=== PATIENT | male | born 1995 | race Caucasian/White ===

== ENCOUNTER 2019-09-01 16:39 | Inpatient (IN) ==
[2019-09-01 17:28] LABS: Appearance Urine Clear (Clear); Bilirubin Urine Negative (Negative); Blood Urine Negative (Negative); Color Urine Yellow; Glucose Urine UA Negative (Negative); Ketones Urine Negative (Negative); Leukocyte Esterase Urine Negative (Negative); Nitrite Urine Negative (Negative); Protein Urine Negative (Negative); Urobilinogen Urine Negative (Negative); pH Urine 7.5 (4.5-7.5)
[2019-09-01 17:32] LABS: Basophils # (auto) 0.02 K/uL (0-0.2); Basophils % (auto) 0.2 %; Eosinophils % (auto) 1.2 %; Hematocrit (blood only) 47.7 % (42-52); Hemoglobin 16.8 g/dL (14.0-18.0); Immature Granulocytes # (auto) 0.02 K/uL (0.00-0.02); Immature Granulocytes % (auto) 0.2 %; Lymphocytes # (auto) 2.63 K/uL (1.2-3.4); Lymphocytes % (auto) 31.9 %; Mean Corpuscular Hemoglobin 31.2 pg (25-34); Mean Corpuscular Hgb Conc 35.2 g/dL (32-36); Mean Corpuscular Volume 88.7 fL (80-100); Mean Platelet Volume 10.3 fL (7.4-10.4); Monocytes % (auto) 6.1 %; Neutrophils # (auto) 4.97 K/uL (1.4-6.5); Neutrophils % (auto) 60.4 %; Platelet Count 239 K/uL (130-400); RDW Coefficient of Variation 12.3 % (11.5-14.5); RDW Standard Deviation 39.3 fL (36.4-46.3); Red Blood Count 5.38 M/uL (4.7-6.1); White Blood Count 8.24 K/uL (4.8-10.8)
[2019-09-01 17:48] LABS: Albumin Level 4.5 gm/dl (3.4-5.0); BUN Creatinine Ratio 12.8 (10-20); Calcium 9.2 mg/dl (8.5-10.1); Creatinine Clr Calc Pharmacy 147.5 ml/min; Est GFR (African American) 132.6; Est GFR (Non-African American) 114.4; Potassium 3.7 mmol/L (3.5-5.1)
[2019-09-01 17:48] LABS: Amphetamines+Metham, Urine Neg (Neg); Barbiturates, Urine Neg (Neg); Benzodiazepine, Urine Neg (Neg); Cocaine, Urine Neg (Neg); MDMA (Ecstacy), Urine Neg (Neg); Methadone, Urine Neg (Neg); Opiate, Urine Neg (Neg); Phencyclidine, Urine Neg (Neg)
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
[2019-09-01 17:59] LABS: Albumin Globulin Ratio 1.5 (0.9-2); Bilirubin,Total 0.6 mg/dl (0.2-1); Globulin 3.1 gm/dl (2.5-4.0); Thyroid Stimulating Hormone 5.8 uIu/ml (0.300-4.500); Total Protein 7.6 gm/dl (6.4-8.2)
[2019-09-01 18:12] LABS: T4 Free Thyroxine 0.97 ng/dl (0.8-1.6)
[2019-09-01 18:15] LABS: Acetaminophen < 2 ug/ml (10-30)
[2019-09-01 18:16] LABS: Salicylate < 1.7 mg/dl (2.8-20)
[2019-09-01] MEDS ORDERED: BISMUTH SUBSALICYLATE PER ML OMNICELL CHARGE PO PRN (19:18)
[2019-09-01] MEDS ORDERED: MAGNESIUM HYDROXIDE SUSP 30 ML UDC PO PRN (19:18)
[2019-09-01] MEDS ORDERED: SODIUM CHLORIDE 0.65% NA SOLN 45 ML (OCEAN) PRN (19:18)
[2019-09-01] MEDS ORDERED: ALUMINUM/MAGNESIUM SUSP 30 ML UDC PO PRN (19:18)
[2019-09-01] MEDS ORDERED: ACETAMINOPHEN 325 MG TAB PO PRN (19:18)
[2019-09-02] MEDS ORDERED: BuPROPion SR 100 MG TABCR PO STA (16:09)
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
[2019-09-02] MEDS: NICOTINE POLACRILEX 2 MG GUM MT PRN (17:33)
[2019-09-03] MEDS: BuPROPion XL 150 MG TABCR PO SCH (08:54)
--- NOTE | 2019-09-03 08:56 | Psychiatric Progress Note ---
Date of Service September 03, 2019 Impression / Recommendations Impression 24-year-old male admitted voluntarily for inpatient psychiatric treatment on 09/01/2019 after presenting to the ED with depressive symptoms and SI with plan to wreck his car. Pt is being treated for a diagnosis of major depressive disorder and history of opiate use disorder and ADHD. Attempting to rule out a component of substance-induced mood symptoms, as patient is regularly utilizing cannabis. As patient had found previous trials of sertraline (with buspirone) and fluoxetine ineffective, plan to start bupropion was initiated. Titrating the medication as tolerated, while also observing level of anxiety. Pt is agreeable with referrals for outpatient therapy and psychiatry. He also agreed with a referral to the [facility] for case management. Although patient is denying SI presently, risk of self-harm on discharge remains high as patient has had limited ability at this point in his stay in engage in group programming and he still requires outpatient appointments. He did participate in a family meeting with his mother, who remains supportive. Inpatient psychiatric treatment remains medically necessary at this time. (1) Depression: 09/02 - 201 admission on 3S q15 minute safety checks for SI family meeting with mother occurred today with SW and went well and parents supportive and pt and parents adjusting with how to provide/obtain support individual and group psychotherapy while inpt milieu therapy after review of presentation and treatment options including r/b/a - added wellbutrin, given time of day for today's dose 09/02 dose to be wellbutrin sr 100mg 1 now converting to wellbutrin xl 150mg am daily starting 09/03/2019 aftercare outpt individual psychotherapy referral and referral for psychiatric med management as well validated sobriety from opiate related meds, encouraged sobriety from cannabis and rationale explored motivation for quitting snuff, pt is ambivalent and wellbutrin being rx'd which can be helpful, nicotine gum ordered and can add patch if needed Vistaril prn anxiety/insomnia explore for ADHD, wellbutrin can alleivate adhd smyptoms off label and address related symptoms tied to depression 09/03 - Continue Wellbutrin XL 150mg daily - recommending observation of anxiety level, as patient questioning if it has been somewhat exacerbated since beginning this new medication. Reviewed various treatment options to target this increase in anxiety, including switching medications, additional of buspirone, or utilization of hydroxyzine as needed - Pt will require solidified aftercare appointments - as he has no professional psychiatric resources in the area presently - Referral to the [facility] for case management - Family meeting with mother occurred yesterday Inventory Assets Strengths: seeking help, wanting psychiatric medicaiton to use to treat depressive smyptoms in proper way, aintaning sobreity from opiate related meds Needs: support from family, outpatient after, psychiatric medications Risk Factors Assessment Male: Yes : Yes Do You Have Access To A Gun?: No (parents have guns but locked up with pt not having access) Health Problems: No Mental Health Diagnoses: Yes Substance Use Disorders: Yes Previous Attempt: No Family History of Suicide: No Previous Psychiatric Hospitalization: No Protective Factors Assessment : No Responsible for Young Children: No Employed: No Supportive Family: Yes Interval History Identifying Information JAUN RIVERS is a 24-year-old M who currently lives with older sister and par ents in [place], [place] and was admitted on 09/01/19 19:18 on a 201 voluntary commitment for worsening depressive symptoms and SI. Chief Complaint "Yeah, so I've been depressed for a few years. I stopped Suboxone last August, and I really think that was covering how bad I was truly feeling." Review of Systems Notes Constitutional: denied Cardiovascular: denied Respiratory: denied Gastrointestinal: denied Neurological: denied Psychiatric: denies symptoms other than stated above Total of at least 10 systems reviewed, pertinent positives as above and in HPI. Sleep Information Total Hours of Sleep: 7 Meal Information Percent Meal Consumed - Lunch: 70 Percent Meal Consumed - Dinner: 100 Subjective Subjective Patient was seen & assessed and interval progress reviewed with treatment team. Staff report the patient has been pleasant and appropriate in interactions with peers. There is concern related to patient's bright affect, and his admission that he often presents a facade that does not accurately reflect his level of depression. Pt did participate in a family meeting with his mother, who remains supportive. Pt was seen today to assess progress since admission. He states that things are going well thus far, and he is noticing some mild improvement in his mood. Pt does report concern related to perceived increase in anxiety since initiating bupropion yesterday. We discussed that this is a potential reaction with this medication, and to continue observation at current dose before discussing further titration. Reviewed various medication options should anxiety continue. Pt denies SI at this time, but remains hopeful for outpatient appointments prior to discharge. Pt denies other needs or concerns at this time. Physical Exam Psychiatric Orientation: alert, oriented x 3 and cooperative (and pleasant) Apperance: appropriately dressed, appropriately groomed and appeared stated age Eye Contact: good eye contact Motor Behavior: steady gait and station and no abnormal motor movements Speech: normal rate/rhythm/volume of speech Affect: euthymic affect; + mood not congruent with affect reporting mood is still rather depressed, and more anxious - presents as bright and interactive Mood: + depressed mood and + anxious mood (reporting increased anxiety as of last evening) Thought Process: goal directed thought process, linear/logical thought process a nd thought association intact Thought Content: reality based without delusions; no hopelessness Suicidal Thoughts: denies suicidal thoughts and denies suicidal intent Homicidal Thoughts: denies homicidal thoughts Hallucinations: no auditory hallucinations and no visual hallucinations Cognition: attention grossly intact and language grossly intact Estimated Intelligence: consistent with education level Insight: + fair insight Judgement: + fair judgement Vital Signs (Past 24 Hours) Last Vital Signs Temp 36.3 C L 09/03/19 06:47 Pulse 65 09/03/19 06:47 Resp 18 09/03/19 06:47 BP 122/76 09/03/19 06:47 Pulse Ox 97 09/01/19 20:00 Results & Data ([facility]) Current Inpatient Medications Current Inpatient Medications: Current Inpatient Medications Acetaminophen (Tylenol) 650 mg PO Q4H PRN PRN Reason: Headache or Minor Fever Stop: 10/01/19 19:17 Al Hydrox/Mg Hydrox/Simethicone (Maalox) 30 ml PO Q4H PRN PRN Reason: GI Upset Stop: 10/01/19 19:17 Bismuth Subsalicylate (Kaopectate) 15 ml PO PRN PRN PRN Reason: Loose Stool Stop: 10/01/19 19:17 Bupropion HCl (Wellbutrin-Xl) 150 mg PO QAM KARINA Stop: 10/03/19 08:59 Last Admin: 09/03/19 08:54 Dose: 150 mg Documented by: Hydroxyzine HCl (Vistaril) 50 mg PO HSZ PRN PRN Reason: Insomnia Stop: 10/01/19 19:17 Last Admin: 09/02/19 21:38 Dose: 50 mg Documented by: Hydroxyzine HCl (Vistaril) 25 mg PO Q4H PRN PRN Reason: Anxiety Stop: 10/01/19 19:17 Magnesium Hydroxide (Milk Of Magnesia) 30 ml PO DAILY PRN PRN Reason: Constipation Stop: 10/01/19 19:17 Nicotine Polacrilex (Nicorette 2mg) 2 piece MT PRN PRN PRN Reason: nicotinue cravings Stop: 10/02/19 17:08 Last Admin: 09/02/19 17:33 Dose: 1 piece Documented by: Sodium Chloride ([place] Nasal) 1 - 2 sprays NA PRN PRN PRN Reason: Nasal Dryness/Congestion Stop: 10/01/19 19:17 Post Discharge Appointments Primary Care Physician Name Of Family Doctor: Mar Fajardo (1) Depression Active/Remission status: currently active Depression Type: major depressive disorder Major depression episode severity: unspecified Major depression recurrence: recurrent Qualified Code(s): F33.9 - Major depressive disorder, recurrent, unspecified
[2019-09-03] MEDS: NICOTINE POLACRILEX 2 MG GUM MT PRN ×2 (08:58→17:55)
[2019-09-04] MEDS: BuPROPion XL 150 MG TABCR PO SCH (08:03)
--- NOTE | 2019-09-04 09:19 | Discharge Summary ---
Date of Service September 04, 2019 History of Present Illness 24 yr old single male living with parents and grown sister (parents on extended trips much of the time though). h/o OUD - including misuse of suboxone, ceased suboxone just over a year ago, uses cannabis daily, uses snuff, been depressed which has worsened past few months but worsened further past 2-3 weeks with SI developing recently and started to have thoughts of crashing his car as way to end his life, lead to ER visit with parents with seeking admission and establishing treatment. He is open to antidepressant medication and outpatient therapy appts. denied h/o hypomanic symptoms fatigue, middle insomnia with waking up 2-3 times a night, depressed mood, impaired concentration, lack of motivation, sometimes over eats. denied h/o restrictive eating or self induced vomiting or binge eating. past couple weeks not been grooming self. feels parents are supportive. does not like his job which is boring and beneath him. left prior job a year ago when ceased suboxone usage. a residential relationship ended fall 2017 that had lasted 3 years. pt wanting to make changes in his life. anxiety symptoms flaring up lately, no panic attacks per pt but can feel anxious and self conscious, worsened past few weeks. alcohol about once am o nth, was nnever more then couple times a month for alcohol in past. dx adhd as child per pt does tend to be impuslive and .longstanding h/o attention concentration issues per pt. Physical Exam Psychiatric Orientation: alert and cooperative Apperance: appropriately dressed, appropriately groomed and appeared stated age Eye Contact: good eye contact Motor Behavior: steady gait and station and no abnormal motor movements Speech: normal rate/rhythm/volume of speech Affect: euthymic affect and mood congruent with affect Mood: no depressed mood and no anxious mood "great!" Thought Process: goal directed thought process and linear/logical thought process Thought Content: reality based without delusions Suicidal Thoughts: denies suicidal thoughts Homicidal Thoughts: denies homicidal thoughts Hallucinations: no auditory hallucinations and no visual hallucinations Cognition: recent memory grossly intact, attention grossly intact and language grossly intact Estimated Intelligence: consistent with education level Insight: good insight Judgement: good judgement Vital Signs (Past 24 Hours) Last Vital Signs Temp 36.3 C L 09/04/19 06:38 Pulse 85 02/18/20 06:39 Resp 18 09/04/19 06:38 BP 122/85 09/04/19 06:39 Pulse Ox 97 09/01/19 20:00 Principal Diagnosis Major depressive disorder, recurrent, severe without psychosis Cannabis use disorder Opiate use disorder, in full sustained remission Psychiatric Data Patient was hospitalized for 3 days. On admission, he was started on bupropion XL. There was initially some concern for increased anxiety/impaired sleep, but over the next couple of days both anxiety and sleep improved, and he appear to be tolerating the medication well. He utilized hydroxyzine for sleep, and reported it was helpful. He attended and participated in groups and therapy, and socialized with peers in his free time. He consistently denied suicidal thoughts throughout his hospital stay. He processed his stressors, including his chronic low self-esteem, and his tendency to project his belief that he is an underachiever and disappointment on to his parents. He was able to identify and challenge distorted thinking patterns. His mother returned from a trip to [place] when she learned that he was in the hospital, and he reported feeling supported by his parents. He had a family meeting with the social media coordinator and his mother on 09/02/2019, during which they reviewed symptoms of depression as well as treatment recommendations, including therapy, medication, and increased supports. He was able to work on a safety plan, which was shared with his mother during the meeting. His mother confirmed that the guns at home are locked and the patient does not have access to them. He also discussed work stress, as he quit his job recently, and was open to working with O regarding employment options. Talked about his uncertainty about what he wants to do with his life. They also discussed his addiction issues, stating that he was sober from opiates for 1 year on 08/27/2018. He agreed to referrals for outpatient services, including medication management, therapy, and case management. Day of Discharge Assessment Staff report the patient is attending and participating in groups and therapy, completed his discharge safety plan, is tending to ADLs independently, interacting appropriately with staff and peers, and consistently denying suicidal thoughts. He is reporting improved mood, and requesting discharge. On my assessment, he states that mood, anxiety, and sleep have all improved over the past 2 days, and he denies side effects to medications. He is feeling hopeful about the future, and denies any thoughts to harm himself or others. He is able to review his discharge safety plan, and states he is looking forward to leaving the hospital and returning to his life. He says he is surprised at how helpful treatment has been, as he did not think he would like attending group therapy, but has found it beneficial. He states willingness to follow-up with outpatient treatment, and denies any acute safety concerns. Transition of Care Transition Of Care Record: was reviewed with the patient Advance Directives Advance Directives Information Provided: Yes Advance Directives: No Mental Health Advance Directive: No Living Will: No Power of Ehr Trainer: No Advance Directives Reason:: Declines as Mental Health Visit. Risk Factors Assessment Risk factors were mitigated by admission to the inpatient unit, use of medications to target mood symptoms and insomnia, education about his diagnoses and the recommended treatment, education about substance abuse and recommendations for abstinence, family meeting with the social media coordinator and his mother, involving him in groups and therapy, working on healthy coping skills and a discharge safety plan, confirming with family that guns are secured and he does not have access, and referring him for outpatient treatment. He is reporting improved mood, has consistently denied suicidal thoughts, is performing ADLs independently, and stating willingness to follow-up with outpatient treatment. He is requesting discharge, and as he is no longer at acute risk of harm to himself or others, can be managed as an outpatient at this time. Male: Yes : Yes Do You Have Access To A Gun?: No (parents have guns but locked up with pt not having access) Health Problems: No Mental Health Diagnoses: Yes Substance Use Disorders: Yes Previous Attempt: No Family History of Suicide: No Previous Psychiatric Hospitalization: No Hopelessness: No Protective Factors Assessment : No Responsible for Young Children: No Employed: No Supportive Family: Yes Tobacco Cessation at Discharge Tobacco Cessation Medication Prescribed at Discharge: Not Applicable/Non-Smoker Total Time Total Time Spent: Less Than 30 Minutes Discharge Data Consultations 09/01/19 19:56 ED Decision to Admit Stat Lab Results 09/01/19 09/01/19 09/01/19 17:20 17:20 17:21 WBC 8.24 RBC 5.38 Hgb 16.8 Hct 47.7 MCV 88.7 MCH 31.2 MCHC 35.2 RDW Std Deviation 39.3 RDW Coeff of Narendra 12.3 Plt Count 239 MPV 10.3 Immature Gran % (Auto) 0.2 Neut % (Auto) 60.4 Lymph % (Auto) 31.9 [place] % (Auto) 6.1 Eos % (Auto) 1.2 Baso % (Auto) 0.2 Immature Gran # (Auto) 0.02 Neut # (Auto) 4.97 Lymph # (Auto) 2.63 [place] # (Auto) 0.50 Eos # (Auto) 0.10 Baso # (Auto) 0.02 Sodium Potassium Chloride Carbon Dioxide Anion Gap BUN Creatinine Est Cr Clr Drug Dosing Est GFR ( Amer) Est GFR (Non-Af Amer) BUN/Creatinine Ratio Glucose Calcium Total Bilirubin AST ALT Alkaline Phosphatase Total Protein Albumin Globulin Albumin/Globulin Ratio TSH Free T4 Urine Color Yellow Urine Appearance Clear Urine pH 7.5 Ur Specific [place] 1.020 Urine Protein Negative Urine Glucose (UA) Negative Urine Ketones Negative Urine Blood Negative Urine Nitrite Negative Urine Bilirubin Negative Urine Urobilinogen Negative Ur Leukocyte Esterase Negative Salicylates Urine Opiates Screen Neg Ur Methadone, Qual Neg Acetaminophen Urine Barbiturates Neg Ur Phencyclidine (PCP) Neg U Amphetamin/Meth Scrn Neg MDMA (Ecstasy) Screen Neg U Benzodiazepines Scrn Neg Ur Cocaine Metabolite Neg U Marijuana (THC) Screen Pos H Ethyl Alcohol mg/dL 09/01/19 09/01/19 09/01/19 17:21 17:21 17:21 WBC RBC Hgb Hct MCV MCH MCHC RDW Std Deviation RDW Coeff of Narendra Plt Count MPV Immature Gran % (Auto) Neut % (Auto) Lymph % (Auto) [place] % (Auto) Eos % (Auto) Baso % (Auto) Immature Gran # (Auto) Neut # (Auto) Lymph # (Auto) [place] # (Auto) Eos # (Auto) Baso # (Auto) Sodium 138 Potassium 3.7 Chloride 106 Carbon Dioxide 26 Anion Gap 6.0 BUN 12 Creatinine 0.92 Est Cr Clr Drug Dosing 147.5 Est GFR ( Amer) 132.6 Est GFR (Non-Af Amer) 114.4 BUN/Creatinine Ratio 12.8 Glucose 100 H Calcium 9.2 Total Bilirubin 0.6 AST 15 ALT 37 Alkaline Phosphatase 77 Total Protein 7.6 Albumin 4.5 Globulin 3.1 Albumin/Globulin Ratio 1.5 TSH 5.800 H Free T4 0.97 Urine Color Urine Appearance Urine pH Ur Specific [place] Urine Protein Urine Glucose (UA) Urine Ketones Urine Blood Urine Nitrite Urine Bilirubin Urine Urobilinogen Ur Leukocyte Esterase Salicylates < 1.7 L Urine Opiates Screen Ur Methadone, Qual Acetaminophen < 2 L Urine Barbiturates Ur Phencyclidine (PCP) U Amphetamin/Meth Scrn MDMA (Ecstasy) Screen U Benzodiazepines Scrn Ur Cocaine Metabolite U Marijuana (THC) Screen Ethyl Alcohol mg/dL < 3.0 Hospital Course (1) Depression: 09/02 - 201 admission on 3S q15 minute safety checks for SI family meeting with mother occurred today with SW and went well and parents supportive and pt and parents adjusting with how to provide/obtain support individual and group psychotherapy while inpt milieu therapy after review of presentation and treatment options including r/b/a - added Wellbutrin, given time of day for today's dose 09/02 dose to be Wellbutrin sr 100mg 1 now converting to Wellbutrin XL 150mg am daily starting 09/03/2019 aftercare outpt individual psychotherapy referral and referral for psychiatric med management as well validated sobriety from opiate related meds, encouraged sobriety from cannabis and rationale explored motivation for quitting snuff, pt is ambivalent and Wellbutrin being rx'd which can be helpful, nicotine gum ordered and can add patch if needed Vistaril prn anxiety/insomnia explore for ADHD, Wellbutrin can alleviate adhd symptoms off label and address related symptoms tied to depression 09/03 - Continue Wellbutrin XL 150mg daily - recommending observation of anxiety level, as patient questioning if it has been somewhat exacerbated since beginning this new medication. Reviewed various treatment options to target this increase in anxiety, including switching medications, additional of buspirone, or utilization of hydroxyzine as needed - Pt will require solidified aftercare appointments - as he has no professional psychiatric resources in the area presently - Referral to the [facility] for case management - Family meeting with mother occurred yesterday 09/04 -Patient reports he is tolerating bupropion XL well, slept well last night, and anxiety has improved over the past 2 days. 30-day prescription issued; initial evaluation scheduled at [facility] 09/25/2019 4 medication management. -Referred to Nandini Copeland for individual therapy, initial assessment 09/05/2019. -Referred to [facility] for BCM; phone intake today prior to discharge. (2) Cannabis abuse: Psychoeducation provided regarding the risks of THC, and recommendations for abstinence. Referred for outpatient therapy, medication management, and BCM as above. (3) Opiate abuse, continuous: Last use 08/2018; currently in remission. Recommend avoidance of controlled substances due to the high risk for abuse/misuse/negative outcomes. Mental Health & Subst Abuse Tx Psychiatrist Name of Psychiatrist: Sophia Parish PA-C Psychiatrist's Date of Appointment with Psychiatrist: 09/25/19 Time of Appointment with Psychiatrist: 1pm Psychiatric Appointment Comment: [id number] [facility] [id number] Therapist Name of Therapist: Nandini Balbuena [facility] Therapist's Date of Therapist Appointment: 09/05/19 Time of Therapist Appointment: 2 pm Therapy Appointment Comment: [id number], [place] [address] Enrollment Management Vice President Name of Enrollment Management Vice President: [facility] Phone Number for Enrollment Management Vice President: [phone] Post Discharge Appointments Primary Care Physician Name Of Family Doctor: Mar Brito Primary Care Provider Appointment Comment: [address] [place] [address] Smoking Cessation Counseling Tobacco Cessation Medication Prescribed at Discharge: Not Applicable/Non-Smoker Contact Information Discharge Discharge [address]: [address] [place] [id number] Discharge Plan Discharge Items Patient Disposition: Home - Self-Care Reason For Visit: DEPRESSION Discharge Diagnosis: Major depressive disorder Cannabis use disorder Opiate use disorder, in remission Activity: Per Instructions section Non-emergency contact: Primary Care Provider, Psychiatrist, Therapist and Digital Technician Call non-emergency contact if: you have any medication questions and your symptoms worsen Follow-up/Referrals: Prasanna Brito MD [Primary Care Provider] - Diet: Regular Addtl Attending Provider Instructions: SPECIAL CARE INSTRUCTIONS: 1. Follow through with your scheduled aftercare appointments. If unable to keep an appointment, please call to reschedule. 2. Take your medication only as prescribed. Medication should not be changed or stopped without the approval of your doctor. In the event of worsening symptoms or concerns about side effects, contact your doctor immediately. 3. Utilize new healthy coping skills, anger management skills, and stress management skills learned during your hospitalization. Journal feelings and process them with a support person. Identify stressors or situations that may result in relapse, deterioration or inappropriate behaviors and develop a plan to deal with those issues. 4. If your coping skills are ineffective and you are in crisis, contact your outpatient providers for direction. If unable to reach your providers, please call the CAN HELP LINE AT or go to the closest Emergency Room. 5. Avoid alcohol and un-prescribed drugs. 6. You have been provided with the Mental Health Advance Directives Pamphlet for your review. AFTERCARE APPOINTMENTS: * Please call your insurance company prior to your scheduled appointment to confirm your aftercare providers are covered. Take your insurance information to your appointments. WHO TO CALL AND WHEN: Medical Emergencies: For questions or emergencies related to your hospital stay, please contact the Inpatient Behavioral Health Unit at [phone]. A educational speech language clinician is on-call 07/02 for the Behavioral Health Unit for emergencies At any time you feel your situation is an emergency, you may also call 911 immediately. Your Doctors Instructions noted above were prepared by provider Batool George MD. Pending Studies at Discharge: No Stand-Alone Forms: My [facility] [employer], Smoking Cessation, Suicide Prevention Resources Medications and DC Order Prescriptions: New bupropion HCl 150 mg Tablet Extended Release 24 Hr 150 mg PO QAM Qty: 30 RF: 0 hydroxyzine HCl 50 mg tablet 50 mg PO HSZ PRN (Reason: insomnia) Qty: 30 RF: 0 No Action No Known Home Medications RF: 0 Discharge Orders: Discharge Order (Routine); Ordered 09/04/19 Ordered By: Batool George Admission Data Admit Date/Time: 09/01/19 19:18 Attending Provider: Batool George Admit Provider: Chinedu Ding I. Primary Care Provider: Prasanna Brito Other Providers: Chinedu Ding I. Other Interventions: PSY Interdisciplinary Discharge Planning Last Done: 09/03/19 14:12 Coding Level of Care Code 36298 D/C day mgmt > 30 min Diagnoses Depression F33.9 Active/Remission status: currently active Depression Type: major depressive disorder Major depression episode severity: unspecified Major depression recurrence: recurrent Cannabis abuse F12.10 Opiate abuse, continuous F11.10
[2019-09-05 07:34] LABS: Marijuana Quant, GCMS Urine 3300 ng/mL (<5)
== END 2019-09-04 11:10 | disposition home or self-care (01) | DRG 885 ==
LOC: ED 16:39 → 3S 19:18 → ED 20:00 → 3S 09-03 13:14